=== PATIENT | male | born 1950 | race African-American/Black ===

== ENCOUNTER 2020-07-04 10:32 | Emergency (ER) | payer BC, MEDICAID ==
[~2020-07-04] VITALS: Ht 175.3 cm; Wt 70.0 kg
[2020-07-04] MEDS ORDERED: TETANUS, DIPHTHERIA, PERTUSSIS VAC/PF 0.5ML (>7YR OLD) IM ONE (11:15)
[2020-07-04] MEDS ORDERED: ACETAMINOPHEN 325MG TABLET PO ONE (11:15)
[2020-07-04 13:15] VITALS: BP 158/83
== END 2020-07-04 13:15 | disposition home or self-care (01) ==
LOC: ER 10:32
DX: S00.83XA Contusion of other part of head, initial encounter (principal); I10 Essential (primary) hypertension; Z98.890 Other specified postprocedural states; X58.XXXA Exposure to other specified factors, initial encounter; Y93.89 Activity, other specified; Y92.89 Other specified places as the place of occurrence of the external cause; Y99.8 Other external cause status
CPT/HCPCS: 90471; 90715; 93005; 99284